=== PATIENT | female | born 1990 | race Two or more races ===

== ENCOUNTER 2018-01-31 13:37 | Emergency (ER) | payer SELFPAY ==
[~2018-01-31] VITALS: Ht 149.9 cm; Wt 68.0 kg
[2018-01-31 13:50] VITALS: BP 123/85
[2018-01-31] MEDS ORDERED: METOCLOPRAMIDE HCL 10 MG/2 ML VIAL ONE (14:49)
[2018-01-31] MEDS ORDERED: diphenhydrAMINE HCL 50 MG/ML VIAL ONE (14:49)
[2018-01-31] MEDS ORDERED: IV NS 0.9% 250 ML BAG IV ONE (15:00)
[2018-01-31] MEDS ORDERED: METOCLOPRAMIDE HCL 10 MG/2 ML VIAL IV ONE (15:00)
[2018-01-31] MEDS ORDERED: diphenhydrAMINE HCL 50 MG/ML VIAL IV ONE (15:00)
== END 2018-01-31 16:13 | disposition home or self-care (01) ==
LOC: ER 13:42
DX: G43.909 Migraine, unspecified, not intractable, without status migrainosus (principal)
CPT/HCPCS: 96361; 96374; 96375; 99284; A4606; J1200; J2765; Z7610

== ENCOUNTER 2018-02-01 14:30 | Emergency (ER) | payer SELFPAY ==
[~2018-02-01] VITALS: Ht 149.9 cm; Wt 68.0 kg
--- NOTE | 2018-02-01 14:45 | NUR ---
PT A/OX4. C/C HEADACH AND HEAD NUMBNESS. SPEAKING FULL SENTENCES. NEG SIGNS OF STROKE. NEG N/V. STABLE CONDITION. VSS. NEG SIGNS OF DISTRESS. SAFETY MEASURES IN PLACE.
[2018-02-01 16:38] VITALS: BP 148/78
== END 2018-02-01 16:38 | disposition home or self-care (01) ==
LOC: EDUNIT# 14:30 → ER 14:37
DX: G43.909 Migraine, unspecified, not intractable, without status migrainosus (principal); Z60.2 Problems related to living alone
CPT/HCPCS: 70450-TC; 84703-TC; A4606; Z7610

== ENCOUNTER 2020-02-20 08:25 | Emergency (ER) | payer OTHER ==
[~2020-02-20] VITALS: Ht 152.4 cm; Wt 74.8 kg
--- NOTE | 2020-02-20 08:40 | NUR ---
patient came in to the er c/o "Heaviness on chest/arm-left side. Started yesterday Feel dizzy". On room air, breathing evenly and unlabored. connected to the monitor and pulse ox. kept comfortable, will continue to monitor accordingly.
--- NOTE | 2020-02-20 08:56 | NUR ---
blood drawned, urine collected and sent to lab
[2020-02-20 09:13] LABS: BASOPHILS % (AUTO) 0.3 % (0.0-2.0); HEMATOCRIT 39 % (33-45); HEMOGLOBIN 12.9 g/dL (11.5-14.8); LYMPHOCYTES # (AUTO) 2.1 /CMM (0.8-4.8); LYMPHOCYTES % (AUTO) 26.4 % (20.0-44.0); MEAN CORPUSCULAR HGB CONC 33 g/dl (31.0-36.0); MEAN CORPUSCULAR VOLUME 87 fL (82-100); MONOCYTES # (AUTO) 0.7 /CMM (0.1-1.30); MONOCYTES % (AUTO) 9.3 % (2.0-12.0); PLATELET COUNT (AUTO) 229 /CMM (150-450); RED BLOOD CELL COUNT(AUTO) 4.53 MIL/uL (4.0-5.2)
[2020-02-20 09:19] LABS: CARBON DIOXIDE 29 mmol/L (21-32); CHLORIDE 102 mmol/L (98-107); CREATININE 0.7 mg/dL (0.6-1.3); GLUCOSE 105 mg/dL (74-106); SODIUM SERUM 138 mmol/L (136-145); UREA NITROGEN, BLOOD 10 mg/dL (7-18)
[2020-02-20 12:33] VITALS: BP 125/81
--- NOTE | 2020-02-20 12:33 | NUR ---
Patient discharged to home in stable condition. Written and verbal after care instructions given. Patient verbalizes understanding of instruction.IV removed. Catheter intact and site benign. Pressure and 4x4 applied to site. No bleeding noted.
== END 2020-02-20 12:33 | disposition home or self-care (01) ==
LOC: ER 08:39
DX: R07.89 Other chest pain (principal); F41.9 Anxiety disorder, unspecified
CPT/HCPCS: 36415; 71045-TC; 80048-TC; 84484-TC; 85025-TC

== ENCOUNTER 2020-07-07 12:18 | Emergency (ER) | payer OTHER ==
[~2020-07-07] VITALS: Ht 154.9 cm; Wt 77.1 kg
[2020-07-07 12:36] VITALS: BP 128/84
[2020-07-07] MEDS ORDERED: LORAZEPAM 1 MG TABLET ONE (13:24)
[2020-07-07] MEDS ORDERED: LORAZEPAM 1 MG TABLET PO ONE (13:30)
== END 2020-07-07 13:58 | disposition home or self-care (01) ==
LOC: ER 12:28
DX: F41.1 Generalized anxiety disorder (principal); R07.89 Other chest pain; R20.2 Paresthesia of skin; R00.2 Palpitations; I45.10 Unspecified right bundle-branch block; Z60.2 Problems related to living alone